=== PATIENT | female | born 1980 | race Caucasian/White ===

== ENCOUNTER 2019-09-19 10:29 | Emergency (ER) | payer MEDICAID ==
[~2019-09-19] VITALS: Ht 157.5 cm; Wt 68.2 kg
[2019-09-19] MEDS ORDERED: LORazepam 1 MG tablet PO ONE ×2 (11:10→11:50)
[2019-09-19] MEDS ORDERED: GABA300C PO (11:21)
[2019-09-19 12:16] VITALS: BP 127/85
== END 2019-09-19 12:18 | disposition home or self-care (01) ==
LOC: ER 10:30
DX: F10.10 Alcohol abuse, uncomplicated (principal); R11.0 Nausea; F32.9 Major depressive disorder, single episode, unspecified; Z79.899 Other long term (current) drug therapy; Y90.9 Presence of alcohol in blood, level not specified
CPT/HCPCS: 99283